=== PATIENT | female | born 1975 | race Caucasian/White ===

== ENCOUNTER 2016-07-24 09:06 | Emergency (ER) | payer SELFPAY ==
[2016-07-24 09:13] VITALS: BP 158/83; BMI 33.7
--- NOTE | 2016-07-24 10:02 | DR.GENAD ---
HPI - PCP Primary Care Physician: someone in [place] - Complaint/Symptoms Chief Complaint Doctors Comments: Patient admits to a history of seizure disorder has been evaluated by [facility] in the past. 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 She admits to unilateral paralysis sometimes with her seizure and afterwards is normal. She denies having a primary care physician. She has had normal CT scans and MRI. She states that she has lived out of the community for atleast five years and recently moved back. Chief Complaint:: has been having dizziness, with right arm pain. it happened two days ago and she stated she had breathing problems.been going on for a year or two - Source History Provided: Patient - Mode of Arrival Mode of Arrival: Ambulatory - Timing Onset of Chief Complaint: 01/28/15 PMH - PMH Past Medical History: Yes Past Medical History: Hypertension, Seizures Past Medical History Comment: renal stents Past Surgical History: Yes Past Surgical History Comment: kidney - Family History History of Family Medical Conditions: No - Social History Does patient currently use any type of tobacco product: Yes Have you used tobacco products in the last 12 months: Yes Type of Tobacco Use: Cigarettes How many years tobacco product used: 30 Does any household member use tobacco: Yes Alcohol Use: None Do you use any recreational Drugs:: No Lives With: Family Lives Where: Home - infectious screening In the last 2 months have you had wt loss of >10#?: NO Have you had fever, night sweats or hemotysis?: No Have you traveled outside the country in the last 6 months?: No Isolation: Standard ROS - Review of Systems Constitutional: Diaphoresis Eyes: No Symptoms Reported ENTM: No Symptoms Reported Respiratoy: No Symptoms Reported Cardiovascular: No Symptoms Reported Gastrointestinal/Abdominal: No Symptoms Reported Genitourinary: No Symptoms Reported Neurological: No Symptoms Reported Musculoskeletal: No Symptoms Reported Integumentary: No Symptoms Reported Hematologic/Lymphatic: No Symptoms Reported Endocrine: No Symptoms Reported Psychiatric: No Symptoms Reported All Other Systems: Reviewed and Negative PE - Vital Signs Vitals: Temperature 98.7 F Pulse Rate 98 Respiratory Rate 16 Blood Pressure 158/83 O2 Sat by Pulse Oximetry 110 - General General Appearance: Alert, In No Apparent Distress, Appears Intoxicated - Head Head Exam: Normal Inspection, Atraumatic - Eyes Eye exam: Normal Appearance, PERRL, EOMI - ENT ENT Exam: Normal Exam, Normal Oropharynx External Ear Exam: Normal External Inspection TM/Canal Exam: Bilateral Normal Nose Exam: Normal Nose Exam Mouth Exam: Normal Inspection Throat Exam: Normal Inspection - Neck Neck Exam: Normal Inspection - Chest Chest Inspection: Normal Inspection - Respiratory Respiratory Exam: Normal Lung Sounds Bilat Respiratory Exam: Bilateral Clear to Auscultation - Cardiovascular Cardiovascular Exam: Regular Rate, Normal Rhythm - Abdominal Exam Abdominal Exam: Normal Inspection, Normal Bowel Sounds Abdominal Tenderness: negative: RUQ, RLQ, LUQ, LLQ, Epigastrium, Suprapubic, Diffuse, Mild, Moderate, Severe, Other - Extremities Extremities Exam: Normal Inspection, Full ROM - Back Back Exam: Normal Inspection - Neurologic Neurological Exam: Alert, Oriented X3, CN II-XII Intact - Psychiatric Psychiatric Exam: Normal Affect, Normal Mood - Skin Skin Exam: Warm, Dry, Intact Course - Reevaluation 1st: Improved ROR - Labs Reviewed Result Diagrams: 07/24/16 10:15 07/24/16 10:15 Laboratory: WBC 9.8 X10^3/uL (3.6-10.0) 07/24/16 10:15 RBC 4.42 X10^6/uL (3.5-5.4) 07/24/16 10:15 Hgb 13.3 g/dL (12.0-16.0) 07/24/16 10:15 Hct 38.3 % (36.0-47.0) 07/24/16 10:15 MCV 86.6 fL (80.0-100.0) 07/24/16 10:15 MCH 30.1 pg (27.0-34.0) 07/24/16 10:15 MCHC 34.8 g/dL (33.0-35.0) 07/24/16 10:15 RDW 14.4 % (11.6-16.5) 07/24/16 10:15 Plt Count 289 X10^3/uL (150.0-450.0) 07/24/16 10:15 MPV 10.0 fL (7.4-11.0) 07/24/16 10:15 Neut % 67.6 % (42.0-75.0) 07/24/16 10:15 Lymph % 23.8 % (21.0-51.0) 07/24/16 10:15 Millard % 6.3 % (0.0-13.0) 07/24/16 10:15 Eos % 1.4 % (0.9-2.9) 07/24/16 10:15 Baso % 0.9 % (0.2-1.0) 07/24/16 10:15 Neut # 6.7 x10^3/uL (2.2-4.8) H 07/24/16 10:15 Lymph # 2.3 X10^3/uL (1.3-2.9) 07/24/16 10:15 Millard # 0.6 x10^3/uL (0.3-0.8) 07/24/16 10:15 Eos # 0.1 x10^3/uL (0.0-0.2) 07/24/16 10:15 Baso # 0.1 X10^3/uL (0.0-0.1) 07/24/16 10:15 Absolute Nucleated RBC 0.0 /100WBC 07/24/16 10:15 Sodium 139 mmol/L (136-145) 07/24/16 10:15 Corrected Sodium TNP 07/24/16 10:15 Potassium 4.2 mmol/L (3.5-5.1) 07/24/16 10:15 Chloride 104 mmol/L (98-107) 07/24/16 10:15 Carbon Dioxide 28.6 mmol/L (21-32) 07/24/16 10:15 BUN 15 mg/dL (7-18) 07/24/16 10:15 Creatinine 1.01 mg/dL (0.55-1.02) 07/24/16 10:15 Est GFR (MDRD) Af Amer > 60 (>60) 07/24/16 10:15 Est GFR (MDRD) Non-Af > 60 (>60) 07/24/16 10:15 Glucose 92 mg/dL (65-99) 07/24/16 10:15 Calcium 9.0 mg/dL (8.5-10.1) 07/24/16 10:15 Corrected Calcium TNP 07/24/16 10:15 Total Bilirubin 0.30 mg/dL (0.2-1.0) 07/24/16 10:15 AST 18 Units/L (15-37) 07/24/16 10:15 ALT 45 Units/L (12-78) 07/24/16 10:15 Alkaline Phosphatase 123 Units/L (46-116) H 07/24/16 10:15 Total Protein 7.4 g/dL (6.4-8.2) 07/24/16 10:15 Albumin 3.7 g/dL (3.4-5.0) 07/24/16 10:15 Globulin 3.7 g/dL (2.5-4.5) 07/24/16 10:15 Albumin/Globulin Ratio 1.0 Ratio (1.1-2.1) L 07/24/16 10:15 Specimen Type Clean catch urine 07/24/16 10:11 Urine Color Yellow (YELLOW) 07/24/16 10:11 Urine Appearance Slightly hazy (CLEAR) 07/24/16 10:11 Urine pH 6.0 (5.0 - 8.0) 07/24/16 10:11 Ur Specific [place] 1.015 (1.000-1.030) 07/24/16 10:11 Urine Protein Negative (NEGATIVE) 07/24/16 10:11 Urine Glucose (UA) Negative (NEGATIVE) 07/24/16 10:11 Urine Ketones Negative (NEGATIVE) 07/24/16 10:11 Urine Occult Blood 1+ (NEGATIVE) 07/24/16 10:11 Urine Nitrite Negative (NEGATIVE) 07/24/16 10:11 Urine Bilirubin Negative (NEGATIVE) 07/24/16 10:11 Urine Urobilinogen Normal (NORMAL) 07/24/16 10:11 Ur Leukocyte Esterase 1+ (NEGATIVE) 07/24/16 10:11 Urine RBC 2-5 /HPF (NEGATIVE) 07/24/16 10:11 Urine WBC 2-5 /HPF (NEGATIVE) 07/24/16 10:11 Ur Squamous Epith Cells Many /HPF (NEGATIVE) 07/24/16 10:11 Urine Bacteria Trace /HPF (NEGATIVE) 07/24/16 10:11 Ur Culture Indicated? No/not indicated 07/24/16 10:11 - Diagnosis Discharge Problem: Seizure disorder, Alfonso's paralysis (postepileptic) - Discharge Plan Condition: Stable - Follow ups/Referrals Follow ups/Referrals: NFD,None [Primary Care Provider] - 3 days - Instructions
[2016-07-24 10:26] LABS: BILIRUBIN,URINE NEGATIVE (NEGATIVE); BLOOD/HEMOGLOBIN,URINE 1+ (NEGATIVE); GLUCOSE, URINE NEGATIVE (NEGATIVE); KETONES,URINE NEGATIVE (NEGATIVE); LEUKOCYTE ESTERASE ,URINE 1+ (NEGATIVE); NITRITES,URINE NEGATIVE (NEGATIVE); PROTEIN,URINE NEGATIVE (NEGATIVE); UROBILINOGEN,URINE NORMAL (NORMAL)
[2016-07-24 10:28] LABS: BASOPHILS # (AUTO) 0.1 X10^3/uL (0.0-0.1); BASOPHILS % (AUTO) 0.9 % (0.2-1.0); EOSINOPHILS # (AUTO) 0.1 x10^3/uL (0.0-0.2); EOSINOPHILS % (AUTO) 1.4 % (0.9-2.9); HEMATOCRIT 38.3 % (36.0-47.0); HEMOGLOBIN 13.3 g/dL (12.0-16.0); LYMPHOCYTES # (AUTO) 2.3 X10^3/uL (1.3-2.9); LYMPHOCYTES % (AUTO) 23.8 % (21.0-51.0); MEAN CORPUSCULAR HEMOGLOBIN 30.1 pg (27.0-34.0); MEAN CORPUSCULAR HGB CONC 34.8 g/dL (33.0-35.0); MEAN CORPUSCULAR VOLUME 86.6 fL (80.0-100.0); MONOCYTES # (AUTO) 0.6 x10^3/uL (0.3-0.8); MONOCYTES % (AUTO) 6.3 % (0.0-13.0); NEUTROPHILS # (AUTO) 6.7 x10^3/uL (2.2-4.8); NEUTROPHILS % (AUTO) 67.6 % (42.0-75.0); PLATELET COUNT 289 X10^3/uL (150.0-450.0); RED BLOOD COUNT 4.42 X10^6/uL (3.5-5.4); RED CELL DISTRIBUTION WIDTH 14.4 % (11.6-16.5); WHITE BLOOD COUNT 9.8 X10^3/uL (3.6-10.0)
[2016-07-24 10:35] LABS: APPEARANCE,URINE SLIGHTLY HAZY (CLEAR); BACTERIA,URINE TRACE /HPF (NEGATIVE); COLOR,URINE YELLOW (YELLOW); SQUAMOUS EPITHELIAL CELL,UR MANY /HPF (NEGATIVE)
[2016-07-24 10:38] LABS: ALANINE AMINOTRANSFERASE 45 Units/L (12-78); ALBUMIN 3.7 g/dL (3.4-5.0); ALKALINE PHOSPHATASE 123 Units/L (46-116); ASPARTATE AMINO TRANSFERASE 18 Units/L (15-37); BLOOD UREA NITROGEN 15 mg/dL (7-18); CARBON DIOXIDE 28.6 mmol/L (21-32); CHLORIDE 104 mmol/L (98-107); CREATININE 1.01 mg/dL (0.55-1.02); GLUCOSE 92 mg/dL (65-99); SODIUM 139 mmol/L (136-145); TOTAL PROTEIN 7.4 g/dL (6.4-8.2); eGFR BLACK RACES > 60 (>60); eGFR NON BLACK RACES > 60 (>60)
== END 2016-07-24 11:24 | disposition home or self-care (01) ==
LOC: ER 09:06
DX: G40.909 Epilepsy, unspecified, not intractable, without status epilepticus (principal); G83.84 Todd's paralysis (postepileptic)
CPT/HCPCS: 36415; 80053; 81001; 85025; 99282

== ENCOUNTER 2016-08-10 17:17 | Emergency (ER) | payer SELFPAY ==
[2016-08-10 17:26] VITALS: BP 151/83; BMI 32.3
--- NOTE | 2016-08-10 18:53 | DR.GENAD ---
HPI - PCP Primary Care Physician: NFD - Complaint/Symptoms Chief Complaint Doctors Comments: Patient admits to being seen in [place] on yesterday and diagnosed with Todds Paralysis. She was started on Keppra 500mg bid. Patient states that she has not gotten the medication nor does she have the funds. She also states that she does not have Todds Paralysis. She has had seizures fince [age] years of age. She is taking tegretol 500mg bid. Chief Complaint:: SHE'S BEEN HAVING TODDS PARALYSIS AND ITS GETTING WORSE. Self Treatment fo Chief Complaint: PATIENT DOES NOT VERBAL SAYING ANYTHING JUST SHAKES HER HEAD. - Source History Provided: Family Member - Mode of Arrival Mode of Arrival: Wheelchair - Timing Onset of Chief Complaint: 08/10/16 PMH - PMH Past Medical History: Yes Past Medical History: Hypertension, Seizures Past Surgical History: Yes Surgical History: Unknown - Family History History of Family Medical Conditions: Yes Family Medical History: Diabetes Mellitus Family Medical History Comment: STROKE - Social History Does any household member use tobacco: Yes Alcohol Use: None Do you use any recreational Drugs:: No Lives With: Family Lives Where: Home - infectious screening In the last 2 months have you had wt loss of >10#?: NO Have you had fever, night sweats or hemotysis?: No Have you traveled outside the country in the last 6 months?: No Isolation: Standard ROS - Review of Systems Eyes: No Symptoms Reported ENTM: No Symptoms Reported Respiratoy: No Symptoms Reported Cardiovascular: No Symptoms Reported Gastrointestinal/Abdominal: No Symptoms Reported Genitourinary: No Symptoms Reported Neurological: Seizure Musculoskeletal: No Symptoms Reported Integumentary: No Symptoms Reported Hematologic/Lymphatic: No Symptoms Reported Endocrine: No Symptoms Reported Psychiatric: No Symptoms Reported All Other Systems: Reviewed and Negative PE - Vital Signs Vitals: Temperature 98.4 F Pulse Rate 74 Respiratory Rate 20 Blood Pressure 151/83 O2 Sat by Pulse Oximetry 94 - General General Appearance: Alert, In No Apparent Distress - Head Head Exam: Normal Inspection, Atraumatic - Eyes Eye exam: Normal Appearance, PERRL, EOMI - ENT ENT Exam: Normal Exam External Ear Exam: Normal External Inspection TM/Canal Exam: Bilateral Normal Nose Exam: Normal Nose Exam Mouth Exam: Normal Inspection Throat Exam: Normal Inspection - Neck Neck Exam: Normal Inspection - Chest Chest Inspection: Normal Inspection - Respiratory Respiratory Exam: Normal Lung Sounds Bilat Respiratory Exam: Bilateral Clear to Auscultation - Cardiovascular Cardiovascular Exam: Regular Rate - Abdominal Exam Abdominal Exam: Normal Inspection Abdominal Tenderness: negative: RUQ, RLQ, LUQ, LLQ, Epigastrium, Suprapubic, Diffuse, Mild, Moderate, Severe, Other - Extremities Extremities Exam: Normal Inspection - Back Back Exam: Normal Inspection - Neurologic Neurological Exam: Alert, Oriented X3, CN II-XII Intact, Motor Sensory Deficit ( left hemiparesis) - Psychiatric Psychiatric Exam: Normal Affect - Skin Skin Exam: Warm, Dry - Diagnosis Discharge Problem: Seizure disorder, Alfonso's paralysis (postepileptic) - Discharge Plan Condition: Stable - Follow ups/Referrals Follow ups/Referrals: NFD,None [Primary Care Provider] - 3 days - Instructions
== END 2016-08-10 19:10 | disposition left against medical advice (07) ==
LOC: ER 17:36
DX: G40.909 Epilepsy, unspecified, not intractable, without status epilepticus (principal); G83.84 Todd's paralysis (postepileptic); R73.9 Hyperglycemia, unspecified
CPT/HCPCS: 99281; 99282